=== PATIENT | female | born 1930 | race Caucasian/White ===

== ENCOUNTER 2018-09-21 06:26 | Emergency (ER) | payer MEDICARE ==
[2018-09-21] MEDS ORDERED: Sodium Chloride 0.9% 1000 ML 1,000 ML ONE (06:41)
[2018-09-21] MEDS ORDERED: Sodium Chloride 0.9% 1000 ML 1,000 ML IV SCH (06:45)
--- NOTE | 2018-09-21 06:49 | ERPHSYRPT ---
- History of Present Illness Source: patient Occurred: this morning Reason for Fall: unknown Injuries/Pain Location: head Loss of Consciousness: unsure Quality: aching Severity of Pain-Max: mild Severity of Pain-Current: mild Modifying Factors: Improves With: nothing Associated Symptoms (Fall): headache Hx Tetanus, Diphtheria Vaccination/Date Given: No Hx Influenza Vaccination/Date Given: No Hx Pneumococcal Vaccination/Date Given: No <SENA SMALL - Last Filed: 09/21/18 06:55> <NIKITA MARTINEZ - Last Filed: 09/21/18 10:41> - History of Present Illness Time Seen by Provider: 09/21/18 06:35 Physician History: PATIENT WITH A HISTORY OF HYPERTENSION, DEMENTIA, CHRONIC ATRIAL FIBRILLATION, PACEMAKER ON COAGULANT XARELTO, FELL THIS AM STRUCK THE RIGHT SIDE OF HER HEAD. PATIENT WAS FOUND BY HER FAMILY SITTING AT KITCHEN TABLE WITH BRUISING AND SWELLING OVER RIGHT TEMPORAL SCALP. PATIENT COMPLAINS OF RIGHT SIDED SCALP PAIN WITH SWELLING. DENIES NECK OR BACK PAIN, PAIN IN UPPER OR LOWER EXTREMITIES. ( SENA SMALL) Allergies/Adverse Reactions: Penicillins Allergy (Mild, Verified 10/31/15 10:22) Sulfa (Sulfonamide Antibiotics) Allergy (Verified 09/21/18 06:51) Home Medications: Atorvastatin Calcium 40 mg PO HS 09/21/18 [History] Digoxin 0.5 tab PO DAILY 09/21/18 [History] Furosemide 20 mg [Lasix 20 mg] 20 mg PO DAILY 09/21/18 [History] Metoprolol Succinate 100 mg [Toprol Xl 100 MG] 100 mg PO DAILY 09/21/18 [ History] Potassium Chloride [Klor-Con M20] 20 meq PO DAILY 09/21/18 [History] Rivaroxaban 10 mg Tablet [Xarelto 10 mg Tablet] 10 mg PO DAILY 09/21/18 [ History] Trazodone HCl 50 mg [Desyrel 50 mg] 50 mg PO HS PRN 09/21/18 [History] - Review of Systems Constitutional: No Fever, No Chills Eyes: No Symptoms Ears, Nose, & Throat: No Symptoms Respiratory: No Symptoms, No Cough, No Dyspnea Cardiac: No Chest Pain, No Edema, No Syncope Abdominal/Gastrointestinal: No Symptoms, No Abdominal Pain, No Nausea, No Vomiting, No Diarrhea Genitourinary Symptoms: No Symptoms, No Dysuria Musculoskeletal: No Symptoms, No Back Pain, No Neck Pain Skin: No Rash Neurological: Headache, No Dizziness, No Focal Weakness, No Sensory Changes Psychological: No Symptoms Endocrine: No Symptoms All Other Systems: Reviewed and Negative <SENA SMALL Last Filed: 09/21/18 06:55> - Past Medical History Pertinent Past Medical History: Yes Neurological History: Dementia (mild) ENT History: Macular Degeneration Cardiac History: Arrhythmia (pacemaker), Hypertension Respiratory History: No Pertinent History Endocrine Medical History: No Pertinent History Musculoskeletal History: No Pertinent History GI Medical History: No Pertinent History History: No Pertinent History Psycho-Social History: No Pertinent History Female Reproductive Disorders: No Pertinent History - Past Surgical History Past Surgical History: Yes Neuro Surgical History: No Pertinent History Cardiac: Pacemaker Respiratory: No Pertinent History Gastrointestinal: No Pertinent History Genitourinary: No Pertinent History Musculoskeletal: No Pertinent History Female Surgical History: No Pertinent History Other Surgical History: surgery on ear as a child, tonsils, - Social History Smoking Status: Never smoker Exposure to second hand smoke: Yes Drug Use: none Patient Lives Alone: Yes <SENA SMALL Filed: 09/21/18 06:55> - Grayling Coma Score Best Eye Response (Calvin): (4) open spontaneously Best Verbal Response (Calvin): (4) confused conversation Best Motor Response (Grayling): (6) obeys commands Grayling Total: 14 - Physical Exam General Appearance: no apparent distress, alert Head Injury: contusions, ecchymosis (RIGHT ANTERIOR TEMPORAL SCALP 6CM X 7CM WITH CORE ECCHYMOSIS, TENDERNESS, NO CREPITUS), swelling, tenderness Eye Exam: PERRL/EOMI ENT Exam: airway nml Neck Exam: normal inspection, other (THERE IS NO POST CERVICAL SPINAL TENDERNESS , RIGID CERVICAL COLLAR APPPLIED UPON ARRIVAL TO EMERGENCY ROOM), No tenderness Respiratory/Chest Exam: normal breath sounds, other (PALPABLE LEFT UPPER LATERAL CHEST WALL PACEMAKER), No chest tenderness, No respiratory distress Cardiovascular Exam: normal heart sounds, regular rate/rhythm Gastrointestinal Exam: soft, No tenderness, No distention, No guarding, No ecchymosis Back Exam: normal inspection, other (FULL RANGE OF MOTION BILATERAL HIPS WITHOUT PAIN, NO TROCHANTER TENDERNESS), No vertebral tenderness Extremity Exam: normal inspection, normal range of motion, pelvis stable, No deformities Neurologic Exam: alert, oriented x 3, cooperative, sensation nml, No motor deficits Skin Exam: normal color, warm, dry <SENA SMALL - Last Filed: 09/21/18 06:55> - Nursing Vital Signs Nursing Vital Signs: Initial Vital Signs Temperature 97.7 F 09/21/18 06:27 Pulse Rate 91 H 09/21/18 06:27 Respiratory Rate 16 09/21/18 06:27 Blood Pressure 156/107 09/21/18 06:27 O2 Sat by Pulse Oximetry 97 09/21/18 06:27 Pain Scale Pain Intensity 3 - Course Nursing assessment & vital signs reviewed: Yes EKG Interpreted by Me: RATE (101), Sinus Rhythm, NORMAL AXIS, Non-specific ST Changes, Other (pacemaker rhythm; no change from ekg dated 10/31/15) <NIKITA MARTINEZ - Last Filed: 09/21/18 10:41> Ordered Tests: Active Orders 24 hr Category Date Time Status Cervical Collar Application STAT Care 09/21/18 06:32 Active EKG-ER Only STAT Care 09/21/18 06:32 Active IV Insertion STAT Care 09/21/18 06:32 Active CERVICAL SPINE WO CONTRAST [CT] Stat Exams 09/21/18 06:32 Completed HEAD WITHOUT CONTRAST [CT] Stat Exams 09/21/18 06:32 Completed CBC W DIFF Stat Lab 09/21/18 06:45 Completed CMP Stat Lab 09/21/18 06:45 Completed MAGNESIUM Stat Lab 09/21/18 06:45 Completed PROTIME WITH INR Stat Lab 09/21/18 06:45 Completed TROPONIN Q3H Lab 09/21/18 06:45 Completed UA W/RFX UR CULTURE Stat Lab 09/21/18 09:54 Completed Medication Summary Generic Name Dose Route Start Last Admin Trade Name Freq PRN Reason Stop Dose Admin Sodium Chloride 1,000 mls @ 50 mls/hr 09/21/18 06:45 09/21/18 06:45 Sodium Chloride 0.9% 1000 Ml IV 10/21/18 06:44 50 mls/hr .Q20H JAMIN Administration Discontinued Medications Generic Name Dose Route Start Last Admin Trade Name Freq PRN Reason Stop Dose Admin Clonidine 0.1 mg 09/21/18 06:53 09/21/18 06:54 Catapres 0.1 Mg PO 09/21/18 06:54 0.1 mg STAT ONE Administration Clonidine Confirm 09/21/18 06:54 Catapres 0.1 Mg Administered 09/21/18 06:55 Dose 0.1 mg .ROUTE .STK-MED ONE Metoprolol Tartrate 2.5 mg 09/21/18 07:56 09/21/18 08:05 Lopressor 5 Mg/5 Ml Injection IV 09/21/18 07:57 2.5 mg STAT ONE Administration Metoprolol Tartrate Confirm 09/21/18 07:58 Lopressor 5 Mg/5 Ml Injection Administered 09/21/18 07:59 Dose 5 mg IV .STK-MED ONE Morphine Sulfate 1 mg 09/21/18 08:06 09/21/18 08:08 Morphine Sulfate 2 Mg Inj IV 09/21/18 08:07 1 mg STAT ONE Administration Morphine Sulfate Confirm 09/21/18 08:07 Morphine Sulfate 2 Mg Inj Administered 09/21/18 08:08 Dose 2 mg .ROUTE .STK-MED ONE Lab/Rad Data: Laboratory Result Diagrams 09/21/18 06:45 09/21/18 06:45 Laboratory Results 09/21/18 09/21/18 09/21/18 Range/Units 09:54 06:45 06:45 WBC (4.0-10.5) K/mm3 RBC (4.1-5.4) M/mm3 Hgb (12.0-16.0) gm/dl Hct (35-47) % MCV (78-100) fl MCH (26-32) pg MCHC (32-36) g/dl RDW (11.5-14.0) % Plt Count (150-450) K/mm3 MPV (6-9.5) fl Gran % (36.0-66.0) % Eos # (Auto) (0-0.5) Absolute Lymphs (auto) (1.0-4.6) Absolute Monos (auto) (0.0-1.3) Lymphocytes % (24.0-44.0) % Monocytes % (0.0-12.0) % Eosinophils % (0.00-5.0) % Basophils % (0.0-0.4) % Absolute Granulocytes (1.4-6.9) Basophils # (0-0.4) PT 20.1 H (9.95-12.35) SECONDS INR 1.72 (0.8-3.0) Sodium (137-145) mmol/L Potassium (3.5-5.1) mmol/L Chloride (98-107) mmol/L Carbon Dioxide (22-30) mmol/L Anion Gap (5-15) MEQ/L BUN (7-17) mg/dL Creatinine (0.52-1.04) mg/dL Estimated GFR ML/MIN Glucose (74-106) mg/dL Calcium (8.4-10.2) mg/dL Magnesium (1.6-2.3) mg/dL Total Bilirubin (0.2-1.3) mg/dL AST (14-36) U/L ALT (0-35) U/L Alkaline Phosphatase (38-126) U/L Troponin I < 0.012 (0.000-0.034) ng/mL Serum Total Protein (6.3-8.2) g/dL Albumin (3.5-5.0) g/dL Urine Color YELLOW (YELLOW) Urine Appearance CLEAR (CLEAR) Urine pH 7.0 (5-6) Ur Specific [place] 1.010 (1.005-1.025) Urine Protein NEGATIVE (Negative) Urine Ketones NEGATIVE (NEGATIVE) Urine Blood SMALL (0-5) Chu/ul Urine Nitrite NEGATIVE (NEGATIVE) Urine Bilirubin NEGATIVE (NEGATIVE) Urine Urobilinogen NEGATIVE (0-1) mg/dL Ur Leukocyte Esterase NEGATIVE (NEGATIVE) Urine WBC (Auto) NONE (0-5) /HPF Urine RBC (Auto) 3-5 (0-2) /HPF U Epithel Cells (Auto) NONE (FEW) /HPF Urine Bacteria (Auto) RARE (NEGATIVE) /HPF Urine Culture Reflexed NO (NO) Urine Glucose NEGATIVE (NEGATIVE) mg/dL 09/21/18 09/21/18 Range/Units 06:45 06:45 WBC 5.4 (4.0-10.5) K/mm3 RBC 4.99 (4.1-5.4) M/mm3 Hgb 14.4 (12.0-16.0) gm/dl Hct 42.7 (35-47) % MCV 85.6 (78-100) fl MCH 28.9 (26-32) pg MCHC 33.7 (32-36) g/dl RDW 14.9 H (11.5-14.0) % Plt Count 127 L (150-450) K/mm3 MPV 9.9 H (6-9.5) fl Gran % 76.8 H (36.0-66.0) % Eos # (Auto) 0.20 (0-0.5) Absolute Lymphs (auto) 0.61 L (1.0-4.6) Absolute Monos (auto) 0.44 (0.0-1.3) Lymphocytes % 11.3 L (24.0-44.0) % Monocytes % 8.2 (0.0-12.0) % Eosinophils % 3.7 (0.00-5.0) % Basophils % 0.0 (0.0-0.4) % Absolute Granulocytes 4.13 (1.4-6.9) Basophils # 0 (0-0.4) PT (9.95-12.35) SECONDS INR (0.8-3.0) Sodium 141 (137-145) mmol/L Potassium 3.7 (3.5-5.1) mmol/L Chloride 104 (98-107) mmol/L Carbon Dioxide 27 (22-30) mmol/L Anion Gap 13.8 (5-15) MEQ/L BUN 17 (7-17) mg/dL Creatinine 1.12 H (0.52-1.04) mg/dL Estimated GFR 48.7 ML/MIN Glucose 132 H (74-106) mg/dL Calcium 9.7 (8.4-10.2) mg/dL Magnesium 2.1 (1.6-2.3) mg/dL Total Bilirubin 1.40 H (0.2-1.3) mg/dL AST 22 (14-36) U/L ALT 22 (0-35) U/L Alkaline Phosphatase 117 (38-126) U/L Troponin I (0.000-0.034) ng/mL Serum Total Protein 6.9 (6.3-8.2) g/dL Albumin 4.2 (3.5-5.0) g/dL Urine Color (YELLOW) Urine Appearance (CLEAR) Urine pH (5-6) Ur Specific [place] (1.005-1.025) Urine Protein (Negative) Urine Ketones (NEGATIVE) Urine Blood (0-5) Chu/ul Urine Nitrite (NEGATIVE) Urine Bilirubin (NEGATIVE) Urine Urobilinogen (0-1) mg/dL Ur Leukocyte Esterase (NEGATIVE) Urine WBC (Auto) (0-5) /HPF Urine RBC (Auto) (0-2) /HPF U Epithel Cells (Auto) (FEW) /HPF Urine Bacteria (Auto) (NEGATIVE) /HPF Urine Culture Reflexed (NO) Urine Glucose (NEGATIVE) mg/dL <SENA SMALL - Last Filed: 09/21/18 06:55> - Progress Progress: improved, re-examined Counseled pt/family regarding: lab results, diagnosis, need for follow-up, rad results <NIKITA MARTINEZ - Last Filed: 09/21/18 10:41> - Progress Progress Note: 09/21/18 06:55 ADMINISTERED CATAPRES 0.1MG ORALLY (SENA SMALL) <SENA SMALL - Last Filed: 09/21/18 06:55> - Departure Time of Disposition: 10:39 Departure Disposition: Home Critical Care Time: No <NIKITA MARTINEZ - Last Filed: 09/21/18 10:41> - Departure Clinical Impression: Fall, Scalp hematoma Condition: Stable Referrals: KYLE CARR [ACTIVE STAFF] - Additional Instructions: hold anticoagulation treatment for 48 hours. follow up with primary doctor for further management
[2018-09-21] MEDS ORDERED: Catapres 0.1 MG PO ONE (06:53)
[2018-09-21] MEDS ORDERED: Catapres 0.1 MG ONE (06:54)
[2018-09-21 07:04] LABS: Basophil (Absolute #) 0 (0-0.4); Eosinophil % 3.7 % (0.00-5.0); Granulocyte Absolute (ANC) 4.13 (1.4-6.9); Granulocytes % 76.8 % (36.0-66.0); Hematocrit 42.7 % (35-47); Hemoglobin 14.4 gm/dl (12.0-16.0); Lymphocyte (Absolute #) 0.61 (1.0-4.6); Lymphocytes % 11.3 % (24.0-44.0); Mean Cell Volume 85.6 fl (78-100); Mean Corpuscular Hemoglobin 28.9 pg (26-32); Mean Corpuscular Hgb Concent. 33.7 g/dl (32-36); Mean Platelet Volume 9.9 fl (6-9.5); Monocyte (Absolute #) 0.44 (0.0-1.3); Monocytes % 8.2 % (0.0-12.0); Platelet Count 127 K/mm3 (150-450); Red Blood Count 4.99 M/mm3 (4.1-5.4); Red Cell Distribution Width 14.9 % (11.5-14.0); White Blood Count 5.4 K/mm3 (4.0-10.5)
[2018-09-21 07:14] LABS: ALBUMIN 4.2 g/dL (3.5-5.0); ANION GAP 13.8 MEQ/L (5-15); BILIRUBIN,TOTAL 1.4 mg/dL (0.2-1.3); Calcium 9.7 mg/dL (8.4-10.2); Creatinine 1 1.12 mg/dL (0.52-1.04); Potassium 3.7 mmol/L (3.5-5.1); Total Protein 6.9 g/dL (6.3-8.2)
[2018-09-21 07:33] LABS: INR 1.72 (0.8-3.0)
[2018-09-21] MEDS ORDERED: LOPRESSOR 5 MG/5 ML INJECTION IV ONE ×2 (07:56→07:58)
[2018-09-21] MEDS ORDERED: MORPHINE SULFATE 2 MG INJ IV ONE (08:06)
[2018-09-21] MEDS ORDERED: MORPHINE SULFATE 2 MG INJ ONE (08:07)
--- NOTE | 2018-09-21 08:55 | XRAY ---
Indication: Right head injury following fall. Multiple contiguous axial images obtained through the head without contrast. Comparison: None Moderate right anterior temporal parietal scalp hematoma. No acute intracranial hemorrhage, abnormal extra-axial fluid collection, or mass effect. Age-related global atrophy and moderate periventricular degenerative micro-ischemia. Right external capsule remote lacunar infarct. Fourth ventricle is midline without hydrocephalus. Bony calvarium intact. Debris/cerumen seen in the left external auditory canal. There has been right mastoidectomy with partial opacification of the air cells. Remaining visualized paranasal sinuses and left mastoid air cells are clear. Impression: 1. Right scalp hematoma. No underlying fracture or acute intracranial abnormalities. 2. Normal aging brain including atrophy and degenerative micro-ischemia. Right external capsule remote lacunar infarct. 3. Right mastoidectomy with partial opacification of the air cells. 4. Left external auditory canal debris/cerumen. CT DI 48.60
--- NOTE | 2018-09-21 08:57 | XRAY ---
Indication: Pain following fall. Multiple contiguous axial images obtained through the cervical spine. Sagittal and coronal reformatted images obtained. Comparison: None Age-related osteopenia. Axial images negative for acute fracture, suspicious bony lesions, or spinal canal stenosis. Mild/moderate C2-C7 degenerative endplate spurring, greatest C5-C6 level. Also mild multilevel bilateral degenerative facet hypertrophy, left greater than right. Sagittal and coronal reformatted images demonstrates normal alignment. C3-C6 degenerative disc space narrowing. No acute compression fracture, subluxation, or jumped facet. Normal appearing craniocervical junction. Visualized noncontrasted soft tissues demonstrates mild scattered carotid calcifications bilaterally. Lung apices demonstrates incompletely visualized large left effusion. Impression: 1. Negative acute fracture/subluxation. 2. Osteopenia and multilevel degenerative changes. 3. Incompletely visualized large left effusion. CTDI 42.12
[2018-09-21 09:59] VITALS: O2SAT 98
[2018-09-21 10:05] LABS: Appearance CLEAR (CLEAR); Bilirubin NEGATIVE (NEGATIVE); Blood SMALL Ery/ul (0-5); Glucose NEGATIVE (NEGATIVE); Ketones NEGATIVE (NEGATIVE); Leukocyte Esterase NEGATIVE (NEGATIVE); Nitrite NEGATIVE (NEGATIVE); Protein,Urine Dip NEGATIVE (Negative); Urobilinogen NEGATIVE mg/dL (0-1)
[2018-09-21 10:53] VITALS: BP 162/75; PULSE 91
== END 2018-09-21 11:03 | disposition home or self-care (01) ==
LOC: ED 06:26
DX: S00.03XA Contusion of scalp, initial encounter (principal); R51 Headache; I48.2 Chronic atrial fibrillation; Z79.899 Other long term (current) drug therapy; W18.30XA Fall on same level, unspecified, initial encounter; Y92.009 Unspecified place in unspecified non-institutional (private) residence as the place of occurrence of the external cause; Z95.0 Presence of cardiac pacemaker; Z79.01 Long term (current) use of anticoagulants; I10 Essential (primary) hypertension
CPT/HCPCS: 36000; 36415; 70450; 72125; 80053; 81001; 83735; 84484; 85025; 85610; 93005; 96360; 96374; 96375; 99284; J2270; A9270-GY